=== PATIENT | male | born 1960 | race Caucasian/White ===

== ENCOUNTER 2017-01-15 18:25 | Inpatient (IN) | payer OTHER ==
[~2017-01-15] VITALS: Ht 182.9 cm; Wt 84.0 kg
[~2017-01-15 18:25] MED LIST: ALLOPURINOL100 MG PO; AMLODIPINE BESY10 MG PO; APRESOLINE50 MG PO; Apresoline PO; BENTYL20 MG PO; Benicar PO; Coreg PO; ENDOCET 5-3251 EACH PO; EXFORGE 10/31 TABLET PO; Ecotrin PO; Hydrodiuril,Oretic,E PO; INDOCIN50 MG PO; Indocin PO; LISINOPRIL-HCT1 EAC3 PO; LISINOPRIL10 MG PO; LISINOPRIL20 MG PO; Lipitor PO; METOPROLOL TART50 MG PO; Milk Of Magnesia,MOM PO; NORMODYNE,TRAN200 MG PO; Norvasc PO; PREDNISONE5 MG PO; PRILOSEC OTC20 MG PO; PROMETHAZINE HC25 M1 PO; PriLOSEC OTC PO; SERTRALINE HCL50 MG PO; XARELTO15 MG PO; ZESTRIL,PRINIVI40 MG PO; ZESTRIL,PRINIVIL5 MG PO; ZYLOPRIM100 MG PO; Zyloprim PO; predniSONE PO
[2017-01-15 18:48] LABS: HEMATOCRIT 37.2 % (38.0-50.0); MCH 26.9 PG (29.0-34.0); MCHC 32.8 G/DL (30.0-36.0); MCV 81.9 FL (86-99); MEAN PLAT.VOLUME 8.5 uM^3 (9.0-12.4); PLATELET COUNT 198 K/uL (156-360); RBC DIS.WIDTH-CV 19.2 % (11.8-14.6); RED BLOOD COUNT 4.54 M/uL (4.00-5.50); WHITE BLOOD COUNT 7.9 K/uL (4.1-10.2)
[2017-01-15 18:56] LABS: EOSINOPHIL (%) 1.6 % (0-5); EOSINOPHIL COUNT 0.1 K/uL (0-0.3); IMMATURE GRANULOCYTE (%) 0.1 % (0.0-0.7); IMMATURE GRANULOCYTE COUNT 0.1 K/uL; LYMPHOCYTE COUNT 1.9 K/uL (1.0-2.8); MONOCYTE (%) 7.8 % (3-12); MONOCYTE COUNT 0.6 K/uL (0-0.8); NEUTROPHIL (%) 65.9 % (45-76); NEUTROPHIL COUNT 5.2 K/uL (1.8-6.4)
[2017-01-15 18:57] LABS: AMYLASE 100 IU/L (1-118); CHLORIDE 112 mEq/L (99-109); POTASSIUM 4.7 mEq/L (3.7-5.4); SODIUM 141 mEq/L (136-147)
[2017-01-15 18:58] LABS: GLUCOSE 89 mg/dL (70-99)
[2017-01-15 19:00] LABS: ANION GAP 13 MEQ/L (2-14)
[2017-01-15 19:01] LABS: SERUM ETHYL ALCOHOL < 10 mg/dL
[2017-01-15 19:02] LABS: GFR ESTIMATE (CALCULATED) 42 mL/min/
[2017-01-15 19:03] LABS: INTER. NORMALIZED RATIO 1.1; PTT 23.1 (25-32); UREA NITROGEN (BUN) 35 mg/dL (9-23)
[2017-01-15 19:05] LABS: LIPASE 64 U/L (1.0-51.0)
[2017-01-15 19:09] LABS: TROP-I INTERPRETATION NEGATIVE; TROPONIN-I 0.08 ng/mL (0.0-0.30)
[2017-01-15] MEDS ORDERED: INDOMETHACIN50 MG PO (19:57)
[2017-01-15] MEDS ORDERED: TYLENOL EXTRA500 MG PO (19:58)
[2017-01-15] MEDS ORDERED: NEXIUM 24HR20 MG PO (19:58)
[2017-01-15 21:38] LABS: ADD MIUA? NO; BILIRUBIN NEGATIVE; BLOOD NEGATIVE; COLOR STRAW ((YELLOW)); GLUCOSE (STRIP) NEGATIVE; KETONES NEGATIVE; LEUKOCYTES NEGATIVE; NITRITE NEGATIVE; PROTEIN (STRIP) NEGATIVE; SPECIFIC GRAVITY 1.011 (1.000-1.030); UCUL ADDED? NO; UROBILINOGEN 0.2 MG/DL (0.2-1.0)
[2017-01-15 21:57] LABS: AMPHETAMINES QUANT VALUE 0 NG/ML; BARBITUATES QUANT VALUE 0 NG/ML; BENZODIAZEPINES QUANT VALUE 0 NG/ML; BENZODIAZEPINES, URINE SCREEN Negative (200 ng/mL); MARIJUANA QUANT VALUE 0 NG/ML; PHENCYCLIDINE QUANT VALUE 0 NG/ML
[2017-01-15 22:00] VITALS: BP 136/73
[2017-01-15 22:04] VITALS: BP 136/73
[2017-01-15 22:47] LABS: TOTAL BILIRUBIN 0.3 mg/dL (0.0-1.0)
[2017-01-15 22:48] LABS: ALKALINE PHOSPHATASE 36 IU/L (3-129)
[2017-01-15 22:51] LABS: DIRECT BILIRUBIN 0.1 mg/dL (0.0-0.3)
[2017-01-15 23:00] VITALS: BP 137/73
[2017-01-15 23:25] LABS: METH RESISTANT S AUREUS PCR NEGATIVE (NEGATIVE)
[2017-01-15 23:29] LABS: PROBE CHECK PASS; SPECIMEN PROCESSING CONTROL PASS
[2017-01-16] VITALS (16 sets, daily range): BP systolic 111–174; BP diastolic 52–84
[2017-01-16 01:08] LABS: HEMATOCRIT 32.2 % (38.0-50.0); MCH 26.8 PG (29.0-34.0); MCHC 32.3 G/DL (30.0-36.0); MEAN PLAT.VOLUME 9.5 uM^3 (9.0-12.4); PLATELET COUNT 181 K/uL (156-360); RBC DIS.WIDTH-CV 18.8 % (11.8-14.6); RBC DIS.WIDTH-SD 54.8 % (39-53); RED BLOOD COUNT 3.88 M/uL (4.00-5.50); WHITE BLOOD COUNT 7.5 K/uL (4.1-10.2)
[2017-01-16 01:35] LABS: TROP-I INTERPRETATION POSITIVE; TROPONIN-I 7.64 ng/mL (0.0-0.30)
[2017-01-16 05:08] LABS: HDL CHOLESTEROL 74 MG/DL (Desirable>=40); LDL CHOLESTEROL 88 mg/dL (Desirable<100); NON-HDL CHOLESTEROL 114 mg/dL (Desirable<160); TOTAL CHOLESTEROL 188 mg/dL (Desirable<200); TRIGLYCERIDES 129 MG/DL (Normal: <150)
[2017-01-16 06:55] LABS: TROP-I INTERPRETATION POSITIVE; TROPONIN-I 12.41 ng/mL (0.0-0.30)
[2017-01-16 08:41] LABS: ANION GAP 9 MEQ/L (2-14); CHLORIDE 112 MEQ/L (99-109); GFR ESTIMATE (CALCULATED) > 59 mL/min/; GLUCOSE 94 mg/dL (70-99); MAGNESIUM 2.1 mg/dl (1.3-2.7); POTASSIUM 4.6 MEQ/L (3.7-5.4); SAMPLE HEMOLYSIS CHECK 0; SAMPLE ICTERIC CHECK 0; SAMPLE LIPEMIA CHECK 0; SODIUM 141 MEQ/L (136-147); UREA NITROGEN (BUN) 26 mg/dL (9-23)
[2017-01-16 15:49] LABS: TROP-I INTERPRETATION POSITIVE; TROPONIN-I 9.96 ng/mL (0.0-0.30)
[2017-01-17 01:01] LABS: HEMATOCRIT 33.5 % (38.0-50.0); MCH 26.7 PG (29.0-34.0); MCHC 31.9 G/DL (30.0-36.0); MCV 83.5 FL (86-99); MEAN PLAT.VOLUME 8.6 uM^3 (9.0-12.4); PLATELET COUNT 172 K/uL (156-360); RBC DIS.WIDTH-CV 19.6 % (11.8-14.6); RBC DIS.WIDTH-SD 57.1 % (39-53); RED BLOOD COUNT 4.01 M/uL (4.00-5.50); WHITE BLOOD COUNT 6.4 K/uL (4.1-10.2)
[2017-01-17 02:00] VITALS: BP 139/62
[2017-01-17 06:00] VITALS: BP 171/90
[2017-01-17 07:00] VITALS: BP 162/84
[2017-01-17 07:04] LABS: Estimated Average Glucose 111 mg/dL (70-123); HEMOGLOBIN A1c (GLYCOHEMOGLOB) 5.5 % HGB (Below 5.7)
[2017-01-17] MEDS ORDERED: BRILINTA90 MG PO (07:30)
[2017-01-17] MEDS ORDERED: ATORVASTATIN CA80 MG PO (07:30)
[2017-01-17] MEDS ORDERED: ASPIR-LOW81 MG PO (07:30)
[2017-01-17 08:20] VITALS: BP 162/95
[2017-01-17] MEDS ORDERED: ALLOPURINOL300 MG PO ×2 (08:50→09:03)
[2017-01-17] MEDS ORDERED: COLCRYS0.6 MG PO (08:52)
[2017-01-17] MEDS ORDERED: METOPROLOL SUCC25 MG PO (10:39)
== END 2017-01-17 10:45 | disposition home or self-care (01) | DRG 247 ==
LOC: EME 18:25 → 4WEST 20:37 → EDOF 20:37 → 4WEST 22:00
PROVIDERS: Emergency Medicine; Internal Medicine Cardiovascular Disease; Internal Medicine Nephrology; Obstetrics & Gynecology
DX: I21.4 Non-ST elevation (NSTEMI) myocardial infarction (principal); I16.1 Hypertensive emergency; F33.9 Major depressive disorder, recurrent, unspecified; I25.110 Atherosclerotic heart disease of native coronary artery with unstable angina pectoris; I16.0 Hypertensive urgency; E66.9 Obesity, unspecified; D64.9 Anemia, unspecified; Z60.2 Problems related to living alone; K21.9 Gastro-esophageal reflux disease without esophagitis; K42.9 Umbilical hernia without obstruction or gangrene; M1A.9XX1 Chronic gout, unspecified, with tophus (tophi); Z79.02 Long term (current) use of antithrombotics/antiplatelets; Z79.82 Long term (current) use of aspirin; Z68.25 Body mass index [BMI] 25.0-25.9, adult; Z80.1 Family history of malignant neoplasm of trachea, bronchus and lung; Z82.49 Family history of ischemic heart disease and other diseases of the circulatory system
CPT/HCPCS: 71010; 73080; 73660; 80048; 80061; 80076; 80306 90; 81003; 82150; 83036; 83690; 83735; 84100; 84484; 84550; 85025; 85027; 85347; 85610; 85730; 86850; 86900; 86901; 87070; 87075; 87205; 87641; 93005; 99281; 99285; C1725; C1769; C1874; C1887; G0480; J0153; J1644; J2250; J2270; J2405; J3010; J3246; J7050; J7512

== ENCOUNTER 2017-02-05 12:17 | Inpatient (IN) | payer OTHER ==
[~2017-02-05] VITALS: Ht 182.9 cm; Wt 85.3 kg
[2017-02-05] VITALS (10 sets, daily range): BP systolic 102–156; BP diastolic 52–86
[~2017-02-05 12:17] MED LIST changes: +ALLOPURINOL300 MG PO; +ASPIR-LOW81 MG PO; +ATORVASTATIN CA80 MG PO; +BRILINTA90 MG PO; +COLCRYS0.6 MG PO; +INDOMETHACIN50 MG PO; +METOPROLOL SUCC25 MG PO; +NEXIUM 24HR20 MG PO; +TYLENOL EXTRA500 MG PO
[2017-02-05 13:35] LABS: INTER. NORMALIZED RATIO 1.2; PROTHROMBIN TIME 12.2 (9.2-11.2)
[2017-02-05 13:55] LABS: HEMATOCRIT 22.8 % (38.0-50.0); MCH 28.5 PG (29.0-34.0); MCHC 32.9 G/DL (30.0-36.0); MCV 86.7 FL (86-99); PLATELET COUNT 178 K/uL (156-360); RBC DIS.WIDTH-CV 19.5 % (11.8-14.6); RBC DIS.WIDTH-SD 57.6 % (39-53)
[2017-02-05 13:56] LABS: RED BLOOD COUNT 2.63 M/uL (4.00-5.50); WHITE BLOOD COUNT 11.2 K/uL (4.1-10.2)
[2017-02-05 14:11] LABS: CHLORIDE 108 mEq/L (99-109); POTASSIUM 5.1 mEq/L (3.7-5.4); SODIUM 139 mEq/L (136-147)
[2017-02-05 14:13] LABS: GLUCOSE 144 mg/dL (70-99)
[2017-02-05 14:14] LABS: ANION GAP 11 MEQ/L (2-14)
[2017-02-05 14:15] LABS: TOTAL BILIRUBIN 0.5 mg/dL (0.0-1.0)
[2017-02-05 14:16] LABS: ALKALINE PHOSPHATASE 24 IU/L (3-129)
[2017-02-05 14:17] LABS: GFR ESTIMATE (CALCULATED) 48 mL/min/
[2017-02-05 14:18] LABS: DIRECT BILIRUBIN 0.2 mg/dL (0.0-0.3); UREA NITROGEN (BUN) 76 mg/dL (9-23)
[2017-02-05 14:20] LABS: LIPASE 41 U/L (1.0-51.0)
[2017-02-05] MEDS ORDERED: ASPIR-LOW81 MG PO (14:49)
[2017-02-05] MEDS ORDERED: COLCRYS0.6 MG PO (14:50)
[2017-02-05] MEDS ORDERED: PREDNISONE10 MG PO (14:56)
[2017-02-05 17:02] LABS: TROP-I INTERPRETATION NEGATIVE; TROPONIN-I 0.16 ng/mL (0.0-0.30)
[2017-02-05 22:36] LABS: HEMATOCRIT 28.2 % (38.0-50.0)
[2017-02-06] VITALS (8 sets, daily range): BP systolic 130–177; BP diastolic 60–82
[2017-02-06 02:12] LABS: HEMATOCRIT 26.3 % (38.0-50.0); MCV 88.6 FL (86-99)
[2017-02-06 07:05] LABS: INTER. NORMALIZED RATIO 1.1; PROTHROMBIN TIME 11.5 (9.2-11.2)
[2017-02-06 07:09] LABS: HEMATOCRIT 23.9 % (38.0-50.0); MCH 29.1 PG (29.0-34.0); MCHC 32.2 G/DL (30.0-36.0); MCV 90.2 FL (86-99); MEAN PLAT.VOLUME 9.3 uM^3 (9.0-12.4); PLATELET COUNT 127 K/uL (156-360); RBC DIS.WIDTH-SD 58.7 % (39-53); RED BLOOD COUNT 2.65 M/uL (4.00-5.50)
[2017-02-06 07:12] LABS: WHITE BLOOD COUNT 6.9 K/uL (4.1-10.2)
[2017-02-06 07:41] LABS: ALKALINE PHOSPHATASE 16 IU/L (3-129); ANION GAP 10 MEQ/L (2-14); CHLORIDE 115 MEQ/L (99-109); GFR ESTIMATE (CALCULATED) 52 mL/min/; SAMPLE HEMOLYSIS CHECK 0; SAMPLE ICTERIC CHECK 0; SAMPLE LIPEMIA CHECK 0; TOTAL BILIRUBIN 0.3 MG/DL (0.0-1.0); UREA NITROGEN (BUN) 51 mg/dL (9-23)
[2017-02-06 07:47] LABS: GLUCOSE 96 mg/dL (70-99); POTASSIUM 3.8 MEQ/L (3.7-5.4); SODIUM 147 MEQ/L (136-147)
[2017-02-06 15:14] LABS: HEMATOCRIT 27.4 % (38.0-50.0); MCV 92.9 FL (86-99)
[2017-02-06 20:03] LABS: HEMATOCRIT 25.7 % (38.0-50.0); MCV 92.1 FL (86-99)
[2017-02-07] VITALS (10 sets, daily range): BP systolic 132–186; BP diastolic 73–88
[2017-02-07 06:37] LABS: EOSINOPHIL (%) 0.7 % (0-5); HEMATOCRIT 25.3 % (38.0-50.0); IMMATURE GRANULOCYTE (%) 0.4 % (0.0-0.7); INSTRUMENT ABS NEUTROPHIL CT 3.8 K/uL; LYMPHOCYTE COUNT 1.1 K/uL (1.0-2.8); MCH 29.6 PG (29.0-34.0); MCV 92.3 FL (86-99); MEAN PLAT.VOLUME 9.6 uM^3 (9.0-12.4); MONOCYTE (%) 7.2 % (3-12); MONOCYTE COUNT 0.4 K/uL (0-0.8); NEUTROPHIL (%) 70.7 % (45-76); NEUTROPHIL COUNT 3.8 K/uL (1.8-6.4); PLATELET COUNT 113 K/uL (156-360); RBC DIS.WIDTH-CV 18.3 % (11.8-14.6); RBC DIS.WIDTH-SD 58.8 % (39-53); RED BLOOD COUNT 2.74 M/uL (4.00-5.50); WHITE BLOOD COUNT 5.4 K/uL (4.1-10.2)
[2017-02-07 07:08] LABS: ANION GAP 6 MEQ/L (2-14); ANION GAP 7 MEQ/L (2-14); CHLORIDE 112 MEQ/L (99-109); CHLORIDE 114 MEQ/L (99-109); POTASSIUM 4.3 MEQ/L (3.7-5.4); SAMPLE HEMOLYSIS CHECK 0; SAMPLE ICTERIC CHECK 0; SAMPLE LIPEMIA CHECK 0; SODIUM 144 MEQ/L (136-147); TOTAL BILIRUBIN 0.3 MG/DL (0.0-1.0)
[2017-02-07 07:16] LABS: ALKALINE PHOSPHATASE 16 IU/L (3-129); GFR ESTIMATE (CALCULATED) > 59 mL/min/; GLUCOSE 100 mg/dL (70-99); GLUCOSE 98 mg/dL (70-99); TROP-I INTERPRETATION NEGATIVE; TROPONIN-I 0.03 ng/mL (0.0-0.30)
[2017-02-07 07:25] LABS: UREA NITROGEN (BUN) 22 mg/dL (9-23)
[2017-02-07 07:26] LABS: UREA NITROGEN (BUN) 22 mg/dL (9-23)
[2017-02-07 12:57] LABS: HEMATOCRIT 29.7 % (38.0-50.0); MCV 92.8 FL (86-99)
[2017-02-07 14:59] LABS: HEMATOCRIT 28.5 % (38.0-50.0); MCV 91.9 FL (86-99)
[2017-02-07 23:00] LABS: HEMATOCRIT 29.1 % (38.0-50.0); MCV 90.7 FL (86-99)
[2017-02-08 04:24] VITALS: BP 161/84
[2017-02-08 07:08] LABS: EOSINOPHIL COUNT 0.1 K/uL (0-0.3); HEMATOCRIT 28.7 % (38.0-50.0); IMMATURE GRANULOCYTE (%) 0.3 % (0.0-0.7); INSTRUMENT ABS NEUTROPHIL CT 5.7 K/uL; LYMPHOCYTE COUNT 1.5 K/uL (1.0-2.8); MCH 29.2 PG (29.0-34.0); MCHC 32.1 G/DL (30.0-36.0); MCV 91.1 FL (86-99); MEAN PLAT.VOLUME 9.4 uM^3 (9.0-12.4); MONOCYTE (%) 6.2 % (3-12); MONOCYTE COUNT 0.5 K/uL (0-0.8); NEUTROPHIL COUNT 5.7 K/uL (1.8-6.4); PLATELET COUNT 114 K/uL (156-360); RBC DIS.WIDTH-CV 17.7 % (11.8-14.6); RBC DIS.WIDTH-SD 57.1 % (39-53); RED BLOOD COUNT 3.15 M/uL (4.00-5.50)
[2017-02-08 07:13] LABS: WHITE BLOOD COUNT 7.8 K/uL (4.1-10.2)
[2017-02-08 07:30] LABS: ANION GAP 7 MEQ/L (2-14); CHLORIDE 111 MEQ/L (99-109); GFR ESTIMATE (CALCULATED) > 59 mL/min/; GLUCOSE 90 mg/dL (70-99); POTASSIUM 3.8 MEQ/L (3.7-5.4); SAMPLE HEMOLYSIS CHECK 0; SAMPLE ICTERIC CHECK 0; SAMPLE LIPEMIA CHECK 0; SODIUM 143 MEQ/L (136-147); UREA NITROGEN (BUN) 11 mg/dL (9-23)
[2017-02-08 07:31] VITALS: BP 178/84
[2017-02-08 11:28] VITALS: BP 168/76
[2017-02-08 15:35] LABS: HEMATOCRIT 29.7 % (38.0-50.0)
[2017-02-08 16:14] VITALS: BP 174/83
[2017-02-08 19:49] VITALS: BP 169/81
[2017-02-08 23:21] LABS: HEMATOCRIT 30.1 % (38.0-50.0); MCV 89.6 FL (86-99)
[2017-02-09] VITALS (7 sets, daily range): BP systolic 121–192; BP diastolic 49–86
[2017-02-09 07:16] LABS: EOSINOPHIL (%) 0 % (0-5); HEMATOCRIT 30.3 % (38.0-50.0); IMMATURE GRANULOCYTE (%) 0.6 % (0.0-0.7); INSTRUMENT ABS NEUTROPHIL CT 4.3 K/uL; LYMPHOCYTE COUNT 0.3 K/uL (1.0-2.8); MCH 29.5 PG (29.0-34.0); MCV 89.4 FL (86-99); MEAN PLAT.VOLUME 9.8 uM^3 (9.0-12.4); MONOCYTE (%) 1.3 % (3-12); MONOCYTE COUNT 0.1 K/uL (0-0.8); NEUTROPHIL (%) 91.6 % (45-76); NEUTROPHIL COUNT 4.3 K/uL (1.8-6.4); PLATELET COUNT 143 K/uL (156-360); RBC DIS.WIDTH-CV 17.2 % (11.8-14.6); RBC DIS.WIDTH-SD 53.9 % (39-53); RED BLOOD COUNT 3.39 M/uL (4.00-5.50)
[2017-02-09 07:19] LABS: WHITE BLOOD COUNT 4.6 K/uL (4.1-10.2)
[2017-02-09 07:26] LABS: ANION GAP 8 MEQ/L (2-14); CHLORIDE 105 MEQ/L (99-109); GFR ESTIMATE (CALCULATED) > 59 mL/min/; GLUCOSE 179 mg/dL (70-99); POTASSIUM 4.4 MEQ/L (3.7-5.4); SAMPLE HEMOLYSIS CHECK 0; SAMPLE ICTERIC CHECK 0; SAMPLE LIPEMIA CHECK 0; SODIUM 138 MEQ/L (136-147); UREA NITROGEN (BUN) 10 mg/dL (9-23)
[2017-02-10 07:10] LABS: HEMATOCRIT 30.2 % (38.0-50.0); MCH 29.5 PG (29.0-34.0); MCHC 32.8 G/DL (30.0-36.0); MCV 89.9 FL (86-99); MEAN PLAT.VOLUME 10.5 uM^3 (9.0-12.4); PLATELET COUNT 167 K/uL (156-360); RBC DIS.WIDTH-CV 17.3 % (11.8-14.6); RBC DIS.WIDTH-SD 54.9 % (39-53); RED BLOOD COUNT 3.36 M/uL (4.00-5.50)
[2017-02-10 07:15] LABS: ANION GAP 7 MEQ/L (2-14); CHLORIDE 108 MEQ/L (99-109); GFR ESTIMATE (CALCULATED) > 59 mL/min/; GLUCOSE 121 mg/dL (70-99); POTASSIUM 4.2 MEQ/L (3.7-5.4); SAMPLE HEMOLYSIS CHECK 0; SAMPLE ICTERIC CHECK 0; SAMPLE LIPEMIA CHECK 0; SODIUM 143 MEQ/L (136-147); UREA NITROGEN (BUN) 19 mg/dL (9-23)
[2017-02-10 07:17] LABS: WHITE BLOOD COUNT 11.1 K/uL (4.1-10.2)
[2017-02-10] MEDS ORDERED: ONDANSETRON4 MG/2 ML PO (07:50)
[2017-02-10] MEDS ORDERED: PROTONIX IV40 MG PO (07:50)
[2017-02-10] MEDS ORDERED: OXYCODONE HCL5 MG PO (07:50)
[2017-02-10] MEDS ORDERED: LOPRESSOR25 MG PO (07:50)
[2017-02-10] MEDS ORDERED: TYLENOL EXTRA500 MG PO (07:50)
[2017-02-10 07:55] VITALS: BP 154/84
== END 2017-02-10 11:14 | disposition home or self-care (01) | DRG 377 ==
LOC: EME 12:17 → 2EAST 15:38 → EDOF 15:38 → 4EAST 15:38 → 2EAST 02-09 03:20
PROVIDERS: Emergency Medicine; Internal Medicine; Internal Medicine Cardiovascular Disease; Internal Medicine Gastroenterology; Nurse Practitioner Adult Health; Physician Assistant
PROC: 30233N1 Transfusion of Nonautologous Red Blood Cells into Peripheral Vein, Percutaneous Approach (ICD-10-PCS; principal; 2017-02-05)
PROC: 0DB68ZX Excision of Stomach, Via Natural or Artificial Opening Endoscopic, Diagnostic (ICD-10-PCS; 2017-02-06)
DX: K25.4 Chronic or unspecified gastric ulcer with hemorrhage (principal); K26.4 Chronic or unspecified duodenal ulcer with hemorrhage; T39.395A Adverse effect of other nonsteroidal anti-inflammatory drugs [NSAID], initial encounter; D62 Acute posthemorrhagic anemia; N17.9 Acute kidney failure, unspecified; I21.4 Non-ST elevation (NSTEMI) myocardial infarction; E86.0 Dehydration; I10 Essential (primary) hypertension; M06.9 Rheumatoid arthritis, unspecified; K44.9 Diaphragmatic hernia without obstruction or gangrene; K20.9 Esophagitis, unspecified; K29.80 Duodenitis without bleeding; E78.5 Hyperlipidemia, unspecified; M10.9 Gout, unspecified; Z95.5 Presence of coronary angioplasty implant and graft; Z79.82 Long term (current) use of aspirin; Z86.72 Personal history of thrombophlebitis; Z79.52 Long term (current) use of systemic steroids; Z86.73 Personal history of transient ischemic attack (TIA), and cerebral infarction without residual deficits
CPT/HCPCS: 74176; 80048; 80053; 80069; 80076; 82140; 83690; 83880; 84484; 85014; 85018; 85025; 85027; 85610; 86850; 86900; 86901; 86920; 88305; 88342 TC; 93005; 99281; 99285; C9113; J2250; J2270; J2405; J2765; J3010; J7030; J7042; J7050; J7512; P9016

== ENCOUNTER 2017-07-07 12:37 | Observation (INO) | payer OTHER ==
[~2017-07-07] VITALS: Ht 182.9 cm; Wt 83.5 kg
[~2017-07-07 12:37] MED LIST changes: +LOPRESSOR25 MG PO; +ONDANSETRON4 MG/2 ML PO; +OXYCODONE HCL5 MG PO; +PREDNISONE10 MG PO; +PROTONIX IV40 MG PO
[2017-07-07 13:14] LABS: HEMATOCRIT 35.6 % (38.0-50.0); MCH 27.6 PG (29.0-34.0); MCHC 32.3 G/DL (30.0-36.0); MCV 85.6 FL (86-99); MEAN PLAT.VOLUME 10.8 uM^3 (9.0-12.4); PLATELET COUNT 228 K/uL (156-360); RBC DIS.WIDTH-CV 15.8 % (11.8-14.6); RBC DIS.WIDTH-SD 48.8 % (39-53); RED BLOOD COUNT 4.16 M/uL (4.00-5.50); WHITE BLOOD COUNT 6.7 K/uL (4.1-10.2)
[2017-07-07 13:25] LABS: CHLORIDE 112 mEq/L (99-109); POTASSIUM 3.8 mEq/L (3.7-5.4); SODIUM 143 mEq/L (136-147)
[2017-07-07 13:27] LABS: GLUCOSE 109 mg/dL (70-99)
[2017-07-07 13:28] LABS: ANION GAP 13 MEQ/L (2-14)
[2017-07-07 13:31] LABS: GFR ESTIMATE (CALCULATED) > 59 mL/min/
[2017-07-07 13:32] LABS: UREA NITROGEN (BUN) 18 mg/dL (9-23)
[2017-07-07 13:35] LABS: TROP-I INTERPRETATION NEGATIVE; TROPONIN-I < 0.01 ng/mL (0.0-0.30)
[2017-07-07] MEDS ORDERED: INDOCIN50 MG PO (17:43)
[2017-07-07] MEDS ORDERED: CLOPIDOGREL75 MG PO (17:44)
[2017-07-07] MEDS ORDERED: LIPITOR80 MG PO (17:45)
[2017-07-07] MEDS ORDERED: TOPROL XL50 MG PO (17:45)
[2017-07-07] MEDS ORDERED: TYLENOL EXTRA500 MG PO (17:47)
[2017-07-07] MEDS ORDERED: ZOLOFT100 MG PO (17:48)
[2017-07-07] MEDS ORDERED: PREDNISONE5 MG PO (17:49)
[2017-07-07] MEDS ORDERED: DAILY VALUE1 EACH PO (17:50)
[2017-07-07 19:37] VITALS: BP 170/84
[2017-07-07 20:13] LABS: TROP-I INTERPRETATION NEGATIVE; TROPONIN-I < 0.01 ng/mL (0.0-0.30)
[2017-07-07 20:42] VITALS: BP 140/88
[2017-07-08 00:14] VITALS: BP 118/72
[2017-07-08 01:23] LABS: TROP-I INTERPRETATION NEGATIVE; TROPONIN-I < 0.01 ng/mL (0.0-0.30)
[2017-07-08 04:36] VITALS: BP 149/73
[2017-07-08 05:46] LABS: ANION GAP 8 MEQ/L (2-14); CHLORIDE 110 MEQ/L (99-109); GFR ESTIMATE (CALCULATED) > 59 mL/min/; GLUCOSE 95 mg/dL (70-99); SAMPLE HEMOLYSIS CHECK 0; SAMPLE ICTERIC CHECK 0; SAMPLE LIPEMIA CHECK 0; SODIUM 142 MEQ/L (136-147); UREA NITROGEN (BUN) 19 mg/dL (9-23)
[2017-07-08 07:03] LABS: C DIFF TOXIN NEGATIVE (NEGATIVE)
[2017-07-08 07:05] LABS: PROBE CHECK PASS; SPECIMEN PROCESSING CONTROL PASS
[2017-07-08 07:28] VITALS: BP 170/83
[2017-07-08] MEDS ORDERED: PANTOPRAZOLE SO40 MG PO (10:42)
[2017-07-08 11:37] VITALS: BP 125/70
[2017-07-08 15:11] VITALS: BP 129/72
== END 2017-07-08 17:20 | disposition home or self-care (01) ==
LOC: EME 12:37 → 5WEST 16:20 → EDOF 16:20 → 5WEST 16:20 → ENRESERV 16:34 → 5WEST 19:23
PROVIDERS: Internal Medicine; Physician Assistant Medical
DX: R07.9 Chest pain, unspecified (principal); K21.9 Gastro-esophageal reflux disease without esophagitis; R12 Heartburn; Z87.11 Personal history of peptic ulcer disease; R19.7 Diarrhea, unspecified; I25.10 Atherosclerotic heart disease of native coronary artery without angina pectoris; Z95.5 Presence of coronary angioplasty implant and graft; I25.2 Old myocardial infarction; Z86.72 Personal history of thrombophlebitis; Z79.01 Long term (current) use of anticoagulants; Z79.82 Long term (current) use of aspirin; Z82.49 Family history of ischemic heart disease and other diseases of the circulatory system; Z80.1 Family history of malignant neoplasm of trachea, bronchus and lung
CPT/HCPCS: 71020; 71275; 80048; 84484; 85027; 87493; 93005; 99281; 99284; G0378; J0360; J1650; J2270; J7120; J7512